=== PATIENT | male | born 1985 | race African-American/Black ===

== ENCOUNTER 2017-01-11 12:27 | Observation (INO) | payer SELFPAY ==
[~2017-01-11 12:27] MED LIST: METHI10 PO; PROP1TAB66 PO
[2017-01-11 12:29] VITALS: BP 131/93; PULSE 101; RESP 15; TEMP 98; O2SAT 97
[2017-01-11] MEDS ORDERED: SODIUM CHLORIDE 0.9% FLUSH 5 ML FLUSH IVF PRN (12:45)
[2017-01-11 12:56] VITALS: RESP 16; O2SAT 100
--- NOTE | 2017-01-11 12:57 | PD ---
HPI Chief Complaint: Pain: Acute or Chronic Time Seen by Provider: 12:52 Travel History International Travel<30 days: No Contact w/Intl Traveler<30days: No Traveled to known affect area: No History of Present Illness HPI Patient is a 31-year-old male presented to the emergency for evaluation of low back pain, bilateral pedal edema, rib pain. Patient states his ongoing for 1 week. He states that he gets diaphoretic and dizzy at times. He denies any nausea, vomiting, diarrhea, chest pain. He does report weight loss, despite a healthy appetite and eating constantly. Patient leaves he is in a thyroid storm , he was on methimazole as well as propanolol but has been out of these medications since September. Patient stated he has no primary doctor which to follow with. PFSH Past Medical History Asthma: No Blood Disorders: No Anxiety: Yes Depression: No Heart Rhythm Problems: Yes (tachycardia) High Cholesterol: No Chemotherapy: No Chest Pain: No Congestive Heart Failure: No COPD: No Diabetes: No Diminished Hearing: No Endocrine: Yes (hypothyroidism) Genitourinary: No Headaches: Yes Immune Disorder: No Musculoskeletal: No Neurologic: No Psychiatric: No Reproductive: No Respiratory: No Immunizations Current: No Migraines: Yes Radiation Therapy: No Sleep Apnea: No Thyroid Disease: Yes (GRAVES DISEASE) Tetanus Vaccination: Unknown Influenza Vaccination: Yes Past Surgical History Surgical History: No Previous Surgery Other Surgery: No Social History Alcohol Use: No Tobacco Use: Yes (1 PACK A DAY) Substance Use: Yes (marijuana) Allergies-Medications (Allergen,Severity, Reaction): Coded Allergies: No Known Allergies (Verified , 07/31/15) Reported Meds & Prescriptions Reported Meds & Active Scripts Active No Active Prescriptions or Reported Medications Review of Systems Except as stated in HPI: all other systems reviewed are Neg General / Constitutional: Positive: Weight Loss, No: Fever, Chills Eyes: No: Blurred Vision, Visual changes HENT: No: Headaches, Lightheadedness, Congestion, Neck Pain Cardiovascular: Positive: Tachycardia, Diaphoresis, No: Chest Pain or Discomfort Respiratory: Positive: Pleuritic Pain, No: Shortness of Breath Gastrointestinal: No: Nausea, Vomiting, Diarrhea, Abdominal Pain, Loss of Appetite Musculoskeletal: Positive: Myalgias, Edema (bilateral feet and ankles), Pain Neurologic: Positive: Dizziness, No: Syncope, Focal Abnormalities, Change in Mentation Physical Exam Narrative GENERAL: Thin, well-developed, alert male. Resting comfortably in no acute distress. SKIN: Warm and dry. HEAD: Atraumatic. Normocephalic. EYES: Pupils equal and round. No scleral icterus. No injection or drainage. Mild proptosis bilaterally ENT: No nasal bleeding or discharge. Mucous membranes pink and moist. NECK: Trachea midline. No JVD. CARDIOVASCULAR: Mildly tachycardic with rate in the low 100's. No murmur appreciated. RESPIRATORY: No accessory muscle use. Clear to auscultation. Breath sounds equal bilaterally. GASTROINTESTINAL: Abdomen soft, non-tender, nondistended. Hepatic and splenic margins not palpable. MUSCULOSKELETAL: No obvious deformities. No clubbing. No cyanosis. Trace edema noted to the left ankle, positive pedal pulses, brisk less than 3 second capillary refill. Negative Karli. NEUROLOGICAL: Awake and alert. No obvious cranial nerve deficits. Motor grossly within normal limits. Normal speech. PSYCHIATRIC: Appropriate mood and affect; insight and judgment normal. Data Data Last Documented VS Vital Signs Date Time Temp Pulse Resp B/P Pulse Ox O2 Delivery O2 Flow Rate FiO2 01/11/17 12:56 16 100 Room Air 01/11/17 12:29 98.0 101 131/93 Orders Electrocardiogram (01/11/17 12:38) B-Type Natriuretic Peptide (01/11/17 12:38) Ckmb (Isoenzyme) Profile (01/11/17 12:38) Complete Blood Count With Diff (01/11/17 12:38) Comprehensive Metabolic Panel (01/11/17 12:38) Magnesium (Mg) (01/11/17 12:38) Prothrombin Time / Inr (Pt) (01/11/17 12:38) Act Partial Throm Time (Ptt) (01/11/17 12:38) Troponin I (01/11/17 12:38) Chest, Single Ap (01/11/17 12:38) Ecg Monitoring (01/11/17 12:38) Bilateral Bp Monitoring (01/11/17 12:38) Iv Access Insert/Monitor (01/11/17 12:38) Oximetry (01/11/17 12:38) Sodium Chloride 0.9% Flush (Ns Flush) (01/11/17 12:45) Us Leg Venous Doppler Bilat (01/11/17 ) Thyroid Stimulating Hormone (01/11/17 12:49) Free Thyroxine (T4) (01/11/17 12:49) Granisetron Hcl (Kytril) (01/11/17 15:15) Admit Order (Ed Use Only) (01/11/17 15:23) Labs Laboratory Tests Test 01/11/17 12:55 White Blood Count 3.6 TH/MM3 Red Blood Count 4.45 MIL/MM3 Hemoglobin 12.0 GM/DL Hematocrit 35.0 % Mean Corpuscular Volume 78.6 FL Mean Corpuscular Hemoglobin 26.9 PG Mean Corpuscular Hemoglobin 34.3 % Concent Red Cell Distribution Width 13.0 % Platelet Count 181 TH/MM3 Mean Platelet Volume 8.5 FL Neutrophils (%) (Auto) 41.7 % Lymphocytes (%) (Auto) 38.9 % Monocytes (%) (Auto) 15.7 % Eosinophils (%) (Auto) 3.5 % Basophils (%) (Auto) 0.2 % Neutrophils # (Auto) 1.5 TH/MM3 Lymphocytes # (Auto) 1.4 TH/MM3 Monocytes # (Auto) 0.6 TH/MM3 Eosinophils # (Auto) 0.1 TH/MM3 Basophils # (Auto) 0.0 TH/MM3 CBC Comment DIFF FINAL Differential Comment Prothrombin Time 11.4 SEC Prothromb Time International 1.0 RATIO Ratio Activated Partial 29.1 SEC Thromboplast Time Sodium Level 140 MEQ/L Potassium Level 4.4 MEQ/L Chloride Level 108 MEQ/L Carbon Dioxide Level 26.2 MEQ/L Anion Gap 6 MEQ/L Blood Urea Nitrogen 11 MG/DL Creatinine 0.45 MG/DL Estimat Glomerular Filtration 265 ML/MIN Rate Random Glucose 94 MG/DL Calcium Level 8.6 MG/DL Magnesium Level 1.5 MG/DL Total Bilirubin 0.6 MG/DL Aspartate Amino Transf 10 U/L (AST/SGOT) Alanine Aminotransferase 21 U/L (ALT/SGPT) Alkaline Phosphatase 98 U/L Total Creatine Kinase 66 U/L Troponin I LESS THAN 0.02 NG/ML B-Type Natriuretic Peptide 127 PG/ML Total Protein 6.8 GM/DL Albumin 3.5 GM/DL Free Thyroxine 5.33 NG/DL Thyroid Stimulating Hormone LESS THAN 3rd Gen 0.005 uIU/ML MDM Medical Decision Making Medical Screen Exam Complete: Yes Emergency Medical Condition: Yes Medical Record Reviewed: Yes Interpretation(s) Last Impressions Chest X-Ray 01/11/17 1238 Signed Impressions: Service Date/Time: Wednesday, January 11, 2017 12:55 - CONCLUSION: No evidence of acute cardiopulmonary disease. Jb Reed MD Laboratory Tests Test 01/11/17 12:55 White Blood Count 3.6 TH/MM3 Red Blood Count 4.45 MIL/MM3 Hemoglobin 12.0 GM/DL Hematocrit 35.0 % Mean Corpuscular Volume 78.6 FL Mean Corpuscular Hemoglobin 26.9 PG Mean Corpuscular Hemoglobin 34.3 % Concent Red Cell Distribution Width 13.0 % Platelet Count 181 TH/MM3 Mean Platelet Volume 8.5 FL Neutrophils (%) (Auto) 41.7 % Lymphocytes (%) (Auto) 38.9 % Monocytes (%) (Auto) 15.7 % Eosinophils (%) (Auto) 3.5 % Basophils (%) (Auto) 0.2 % Neutrophils # (Auto) 1.5 TH/MM3 Lymphocytes # (Auto) 1.4 TH/MM3 Monocytes # (Auto) 0.6 TH/MM3 Eosinophils # (Auto) 0.1 TH/MM3 Basophils # (Auto) 0.0 TH/MM3 CBC Comment DIFF FINAL Differential Comment Prothrombin Time 11.4 SEC Prothromb Time International 1.0 RATIO Ratio Activated Partial 29.1 SEC Thromboplast Time Sodium Level 140 MEQ/L Potassium Level 4.4 MEQ/L Chloride Level 108 MEQ/L Carbon Dioxide Level 26.2 MEQ/L Anion Gap 6 MEQ/L Blood Urea Nitrogen 11 MG/DL Creatinine 0.45 MG/DL Estimat Glomerular Filtration 265 ML/MIN Rate Random Glucose 94 MG/DL Calcium Level 8.6 MG/DL Magnesium Level 1.5 MG/DL Total Bilirubin 0.6 MG/DL Aspartate Amino Transf 10 U/L (AST/SGOT) Alanine Aminotransferase 21 U/L (ALT/SGPT) Alkaline Phosphatase 98 U/L Total Creatine Kinase 66 U/L Troponin I LESS THAN 0.02 NG/ML B-Type Natriuretic Peptide 127 PG/ML Total Protein 6.8 GM/DL Albumin 3.5 GM/DL Free Thyroxine 5.33 NG/DL Thyroid Stimulating Hormone LESS THAN 3rd Gen 0.005 uIU/ML Vital Signs Date Time Temp Pulse Resp B/P Pulse Ox O2 Delivery O2 Flow Rate FiO2 01/11/17 12:29 98.0 101 15 131/93 97 Differential Diagnosis Thyroid storm versus electrolyte abnormality versus anemia versus DVT versus muscular skeletal pain versus other Narrative Course Patient is a 31-year-old male presenting to the emergency department evaluation of back and leg pain as well as swelling for the last week. Labs and imaging ordered pending. IV access initiated, patient placed on telemetry monitoring, continuous pulse oximetry. Patient is resting comfortably with family member at bedside. CBC reviewed, consistent with prior. Chemistry is unremarkable. TSH is 0.005, free T4 5.33. EKG shows sinus rhythm with possible left atrial enlargement, possible left ventricular hypertrophy. Reviewed previous EKG tracings, consistent with prior. Chest x-ray is negative Ultrasound of the lower extremity is negative for DVT. Patient to be admitted under observation for chest pain, hyperthyroidism. Hospitalist paged. Patient is agreeable to stay to have medications titrated and for observation on telemetry. Diagnosis Primary Impression: Chest pain Qualified Code: R07.9 - Chest pain, unspecified type Additional Impression: Hyperthyroidism Admitting Information Admitting Physician Requests: Observation Scripts No Active Prescriptions or Reported Meds Condition: Stable Rocío Whelan Jan 11, 2017 12:57
[2017-01-11 13:17] LABS: AUTOMATED NEUTROPHIL # 1.5 TH/MM3 (1.8-7.7); BASOPHIL % 0.2 % (0.0-2.0); EOSINOPHIL # 0.1 TH/MM3 (0-0.4); EOSINOPHIL % 3.5 % (0.0-4.0); HEMO FLAGS DIFF FINAL; LYMPH % 38.9 % (9.0-44.0); LYMPHOCYTE # 1.4 TH/MM3 (1.0-4.8); MEAN CELL VOLUME 78.6 FL (80.0-100.0); MEAN CORPUSCULAR HEMOGLOBIN 26.9 PG (27.0-34.0); MEAN CORPUSCULAR HGB CONC 34.3 % (32.0-36.0); MONO % 15.7 % (0.0-8.0); NEUT % 41.7 % (16.0-70.0); PLATELET COUNT 181 TH/MM3 (150-450); RED BLOOD COUNT 4.45 MIL/MM3 (4.50-5.90); WHITE BLOOD COUNT 3.6 TH/MM3 (4.0-11.0)
[2017-01-11 13:27] LABS: APTT (PATIENT) 29.1 SEC (24.3-30.1); PROTHROMBIN TIME - PATIENT 11.4 SEC (9.8-11.6)
[2017-01-11 13:33] LABS: ALT (GPT) 21 U/L (12-78); ANION GAP 6 MEQ/L (5-15); AST (GOT) 10 U/L (15-37); BICARBONATE 26.2 MEQ/L (21.0-32.0); BLOOD UREA NITROGEN 11 MG/DL (7-18); CHLORIDE 108 MEQ/L (98-107); GLOMERULAR FILTRATION RATE 265 ML/MIN (>89); MAGNESIUM 1.5 MG/DL (1.5-2.5); POTASSIUM 4.4 MEQ/L (3.5-5.1); SODIUM (NA) 140 MEQ/L (136-145)
--- NOTE | 2017-01-11 13:33 | RADRPT ---
EXAM DATE/TIME: 01/11/2017 12:55 [facility] COMPARISON: CHEST PA & LAT, July 14, 2015, 13:32. INDICATIONS : Chest Pain MEDICAL HISTORY : None. SURGICAL HISTORY : None. ENCOUNTER: Initial ACUITY: 1 day PAIN SCORE: 6/10 LOCATION: Bilateral chest FINDINGS: A single view of the chest demonstrates the lungs to be symmetrically aerated without evidence of mas s, infiltrate or effusion. The cardiomediastinal contours are unremarkable. Osseous structures are intact. CONCLUSION: No evidence of acute cardiopulmonary disease. Jb Reed MD on January 11, 2017 at 13:31 Board Certified Radiologist. This report was verified electronically.
[2017-01-11 13:37] LABS: ALKALINE PHOSPHATASE 98 U/L (45-117); TOTAL BILIRUBIN ADULT 0.6 MG/DL (0.2-1.0)
[2017-01-11 13:39] LABS: CREATINE KINASE 66 U/L (39-308)
[2017-01-11 14:03] LABS: FREE T4 5.33 NG/DL (0.76-1.46)
[2017-01-11] MEDS ORDERED: GRANISETRON HCL 1 MG TAB PO ONE (15:15)
--- NOTE | 2017-01-11 15:36 | RADRPT ---
EXAM DATE/TIME: 01/11/2017 13:55 [facility] COMPARISON: No previous studies available for comparison. INDICATIONS : Bilateral leg swelling. MEDICAL HISTORY : Hypothyroidism. Myocardial infarction. Graves disease. Anxiety. Tachycardia. Migraines. SURGICAL HISTORY : None. ENCOUNTER: Initial ACUITY: 1 day PAIN SCORE: 4/10 LOCATION: Bilateral legs. TECHNIQUE: Venous ultrasound of the left and right leg was performed from the inguinal ligament to the proximal calf. Real-time, color Doppler and spectral tracing, compression and augmentation techniques were us ed. FINDINGS: RIGHT LEG: There is normal compressibility of the deep venous system from the inguinal region to the proximal ca lf. No echogenic clot is seen in the lumen of the common femoral, femoral, popliteal, and posterior tibial veins. There is a normal response of the venous system to proximal and distal augmentation an d respiration. LEFT LEG: There is normal compressibility of the deep venous system from the inguinal region to the proximal ca lf. No echogenic clot is seen in the lumen of the common femoral, femoral, popliteal, and posterior tibial veins. There is a normal response of the venous system to proximal and distal augmentation an d respiration. CONCLUSION: Normal examination. Cooper Oleary MD on January 11, 2017 at 15:34 Board Certified Radiologist. This report was verified electronically.
[2017-01-11 16:00] VITALS: BP 124/84; PULSE 104; RESP 16; O2SAT 99
[2017-01-11] MEDS ORDERED: SODIUM CHLORIDE 0.9% FLUSH 5 ML FLUSH FLUSH PRN (16:45)
[2017-01-11] MEDS ORDERED: NALOXONE HCL 0.4 MG/ML AMP IV PRN (16:45)
[2017-01-11] MEDS ORDERED: ONDANSETRON HCL 4 MG/2 ML VIAL IVP PRN (16:45)
[2017-01-11] MEDS ORDERED: PROPRANOLOL HCL 20 MG TAB PO SCH (17:00)
--- NOTE | 2017-01-11 17:29 | PD ---
Physical Exam Narrative GENERAL: Well-nourished, well-developed patient. SKIN: Warm and dry. HEAD: Normocephalic and atraumatic. EYES: No injection or drainage. ENT: No nasal drainage noted. NECK: Supple, trachea midline. CARDIOVASCULAR: Tachycardic rate and regular rhythm in the 110 range RESPIRATORY: No increased effort. No accessory muscle use. EXTREMITIES: No edema. NEUROLOGICAL: Awake and alert. Motor and sensory grossly within normal limits. Normal speech. Data Data Last Documented VS Vital Signs Date Time Temp Pulse Resp B/P Pulse Ox O2 Delivery O2 Flow Rate FiO2 01/11/17 12:56 16 100 Room Air 01/11/17 12:29 98.0 101 131/93 Orders Electrocardiogram (01/11/17 12:38) B-Type Natriuretic Peptide (01/11/17 12:38) Ckmb (Isoenzyme) Profile (01/11/17 12:38) Complete Blood Count With Diff (01/11/17 12:38) Comprehensive Metabolic Panel (01/11/17 12:38) Magnesium (Mg) (01/11/17 12:38) Prothrombin Time / Inr (Pt) (01/11/17 12:38) Act Partial Throm Time (Ptt) (01/11/17 12:38) Troponin I (01/11/17 12:38) Chest, Single Ap (01/11/17 12:38) Ecg Monitoring (01/11/17 12:38) Bilateral Bp Monitoring (01/11/17 12:38) Iv Access Insert/Monitor (01/11/17 12:38) Oximetry (01/11/17 12:38) Sodium Chloride 0.9% Flush (Ns Flush) (01/11/17 12:45) Us Leg Venous Doppler Bilat (01/11/17 ) Thyroid Stimulating Hormone (01/11/17 12:49) Free Thyroxine (T4) (01/11/17 12:49) Granisetron Hcl (Kytril) (01/11/17 15:15) Admit Order (Ed Use Only) (01/11/17 15:23) Labs Laboratory Tests Test 01/11/17 12:55 White Blood Count 3.6 TH/MM3 Red Blood Count 4.45 MIL/MM3 Hemoglobin 12.0 GM/DL Hematocrit 35.0 % Mean Corpuscular Volume 78.6 FL Mean Corpuscular Hemoglobin 26.9 PG Mean Corpuscular Hemoglobin 34.3 % Concent Red Cell Distribution Width 13.0 % Platelet Count 181 TH/MM3 Mean Platelet Volume 8.5 FL Neutrophils (%) (Auto) 41.7 % Lymphocytes (%) (Auto) 38.9 % Monocytes (%) (Auto) 15.7 % Eosinophils (%) (Auto) 3.5 % Basophils (%) (Auto) 0.2 % Neutrophils # (Auto) 1.5 TH/MM3 Lymphocytes # (Auto) 1.4 TH/MM3 Monocytes # (Auto) 0.6 TH/MM3 Eosinophils # (Auto) 0.1 TH/MM3 Basophils # (Auto) 0.0 TH/MM3 CBC Comment DIFF FINAL Differential Comment Prothrombin Time 11.4 SEC Prothromb Time International 1.0 RATIO Ratio Activated Partial 29.1 SEC Thromboplast Time Sodium Level 140 MEQ/L Potassium Level 4.4 MEQ/L Chloride Level 108 MEQ/L Carbon Dioxide Level 26.2 MEQ/L Anion Gap 6 MEQ/L Blood Urea Nitrogen 11 MG/DL Creatinine 0.45 MG/DL Estimat Glomerular Filtration 265 ML/MIN Rate Random Glucose 94 MG/DL Calcium Level 8.6 MG/DL Magnesium Level 1.5 MG/DL Total Bilirubin 0.6 MG/DL Aspartate Amino Transf 10 U/L (AST/SGOT) Alanine Aminotransferase 21 U/L (ALT/SGPT) Alkaline Phosphatase 98 U/L Total Creatine Kinase 66 U/L Troponin I LESS THAN 0.02 NG/ML B-Type Natriuretic Peptide 127 PG/ML Total Protein 6.8 GM/DL Albumin 3.5 GM/DL Free Thyroxine 5.33 NG/DL Thyroid Stimulating Hormone LESS THAN 3rd Gen 0.005 uIU/ML [facility] Supervised Visit with GENEVA: Yes Interpretation(s) EKG is normal sinus rhythm at [address] segment elevation or T-wave inversion, large QRS voltage question LVH Last 24 hours Impressions Chest X-Ray 01/11/17 1238 Signed Impressions: Service Date/Time: Wednesday, January 11, 2017 12:55 - CONCLUSION: No evidence of acute cardiopulmonary disease. Jb Reed MD Lower Extremity Ultrasound 01/11/17 0000 Signed Impressions: Service Date/Time: Wednesday, January 11, 2017 13:55 - CONCLUSION: Normal examination. Cooper Oleary MD CBC & BMP Diagram 01/11/17 12:55 Differential Diagnosis Thyroid storm, noncompliance, musculoskeletal, gastritis, atypical cardiac Narrative Course Will check blood work, chest x-ray, Doppler ultrasound and reevaluate Patient without altered mental status or fever at this time but given noted of chest pain and palpitations with hyperthyroidism off of medications Will place in the hospital for monitoring while back on medications for cardiac monitoring , echocardiogram and serial EKGs and troponins. Patient agrees to this. Tachycardia is in the 110 range no indication for IV beta triny at this time Physician Communication Physician Communication Dr. calderon requests chest pain center observation dr barton thru his PA [place] states to admit to medicine dr calderon states to place in observation Diagnosis Primary Impression: Chest pain Additional Impressions: Lower extremity edema Hyperthyroidism Admitting Information Admitting Physician Requests: Observation Scripts No Active Prescriptions or Reported Meds Elizabeth Grace MD Jan 11, 2017 17:29
[2017-01-11 17:57] VITALS: BP 138/70; PULSE 102; RESP 18; TEMP 97.9; O2SAT 98
[2017-01-11] MEDS ORDERED: PILL SPLITTER OTHER PRN (18:30)
--- NOTE | 2017-01-11 18:54 | HHI.HP ---
[facility] No Primary Care Physician Admission Diagnosis chest pain, hyperthyroidism Diagnoses: Chief Complaint: chest pain, lower extremity edema Travel History International Travel<30 Days: No Contact w/Intl Traveler <30 Da: No Traveled to Known Affected Are: No History of Present Illness Patient is a 31-year-old old male with primary medical history of hyperthyroidism who came to the hospital for evaluation of chest/ rib pain, bilateral pedal edema, and low back pain. Patient says started about 4 days ago that he had been having bilateral rib pain increased with taking deep breaths occurring usually at night, described as sharp and intermittent, aggravated by movement and strength is activities. Reports occasional shortness of breath with activities, but gets relief with resting. Also reports bilateral foot pain, ankles and foot feels like with bubbles of water increased pain with activities and walking, swelling is left greater than the right foot, this problem is going on and off. 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 Patient also reports he was homeless and now getting back on his feet. Patient also revealed that he does not take his thyroid medication since last September and was unable to follow up with a PCP that was set up or for him after his discharge from last year. Patient is on a thyroid storm, he was previously prescribed methimazole and propranolol. On exam, patient states he's feeling a lot better, states bilateral rib pain is improved because his resting. Otherwise, denies SOB/ dyspnea. Denies palpitations, headaches, dizziness. Denies fevers, chills, n/v/d. Chest x-ray showed no evidence of acute cardiopulmonary disease. Bilateral lower extremity ultrasound showed normal examination. Labs reviewed noted leukocytopenia WBC 3.6, mild microcytic anemia H&H 12/35, RBC 4.45, MCV 78.6, MCH 26.9, monocytes slightly elevated 15.7. CMP chloride 108, creatinine low 0.45, low AST 10. First troponin less than 0.02. BNP 127. TSH less than 0.005, free T4 5 0.33. Review of Systems Except as stated in HPI: all other systems reviewed are Neg Past Family Social History Past Medical History Hyperthyroidism Graves' disease Past Surgical History No surgical history Reported Medications None. Previously prescribed methimazole, propranolol Allergies: Coded Allergies: No Known Allergies (Verified , 07/31/15) Active Ordered Medications Current Medications Medications (Trade) Dose Ordered Sig/Lorne Route Start Time Stop Time Status Last Admin (NS Flush) 2 ml UNSCH PRN FLUSH 01/11/17 16:45 (NS Flush) 2 ml BID FLUSH 01/11/17 21:00 (Tylenol) 650 mg Q4H PRN PO 01/11/17 16:45 (Zofran Inj) 4 mg Q6H PRN IVP 01/11/17 16:45 (Narcan Inj) 0.4 mg UNSCH PRN IV 01/11/17 16:45 (Tapazole) 10 mg Q8HR PO 01/11/17 22:00 (Inderal) 20 mg Q8H PO 01/11/17 17:00 Family History Both sides of the family have thyroid disease. Grandfather has diabetes Grandmother and grandfather of heart attacks Social History Denies alcohol use Current day smoker 1 pack per day Marijuana use Physical Exam Vital Signs Vital Signs Date Time Temp Pulse Resp B/P Pulse Ox O2 Delivery O2 Flow Rate FiO2 01/11/17 17:57 97.9 102 18 138/70 98 01/11/17 16:00 104 16 124/84 99 Room Air 01/11/17 12:56 16 100 Room Air 01/11/17 12:29 98.0 101 15 131/93 97 Physical Exam GENERAL: This is a thinly appearing, well-developed patient, in no apparent distress. SKIN: Warm and dry. Vitiligo. HEAD: Atraumatic. Normocephalic. No temporal or scalp tenderness. EYES: Pupils equal round and reactive. Extraocular motions intact. No scleral icterus. No injection or drainage. Exophthalmus. ENT: Nose without bleeding. Throat without erythema. Uvula midline. Airway patent. NECK: Trachea midline. No JVD or lymphadenopathy. Supple, nontender, no meningeal signs. Pulsating carotid pulse. CARDIOVASCULAR: Tachycardia without murmurs, gallops, or rubs. RESPIRATORY: Clear to auscultation. Breath sounds equal bilaterally. No wheezes , rales, or rhonchi. GASTROINTESTINAL: Abdomen soft, non-tender, nondistended. No hepato-splenomegaly , or palpable masses. No guarding. MUSCULOSKELETAL: Extremities without clubbing, cyanosis. Left ankle and pedal edema +1, right ankle pedal edema trace. No calf tenderness. Negative Homans sign bilaterally. NEUROLOGICAL: Awake and alert. Oriented 3. Motor and sensory grossly within normal limits. No focal neuro deficit. Normal speech. Laboratory Laboratory Tests Test 01/11/17 12:55 White Blood Count 3.6 Red Blood Count 4.45 Hemoglobin 12.0 Hematocrit 35.0 Mean Corpuscular Volume 78.6 Mean Corpuscular Hemoglobin 26.9 Mean Corpuscular Hemoglobin 34.3 Concent Red Cell Distribution Width 13.0 Platelet Count 181 Mean Platelet Volume 8.5 Neutrophils (%) (Auto) 41.7 Lymphocytes (%) (Auto) 38.9 Monocytes (%) (Auto) 15.7 Eosinophils (%) (Auto) 3.5 Basophils (%) (Auto) 0.2 Neutrophils # (Auto) 1.5 Lymphocytes # (Auto) 1.4 Monocytes # (Auto) 0.6 Eosinophils # (Auto) 0.1 Basophils # (Auto) 0.0 CBC Comment DIFF FINAL Differential Comment Prothrombin Time 11.4 Prothromb Time International 1.0 Ratio Activated Partial 29.1 Thromboplast Time Sodium Level 140 Potassium Level 4.4 Chloride Level 108 Carbon Dioxide Level 26.2 Anion Gap 6 Blood Urea Nitrogen 11 Creatinine 0.45 Estimat Glomerular Filtration 265 Rate Random Glucose 94 Calcium Level 8.6 Magnesium Level 1.5 Total Bilirubin 0.6 Aspartate Amino Transf 10 (AST/SGOT) Alanine Aminotransferase 21 (ALT/SGPT) Alkaline Phosphatase 98 Total Creatine Kinase 66 Troponin I LESS THAN 0.02 B-Type Natriuretic Peptide 127 Total Protein 6.8 Albumin 3.5 Free Thyroxine 5.33 Thyroid Stimulating Hormone LESS THAN 3rd Gen 0.005 Result Diagram: 01/11/17 1255 01/11/17 1255 Imaging Last Impressions Chest X-Ray 01/11/17 1238 Signed Impressions: Service Date/Time: Wednesday, January 11, 2017 12:55 - CONCLUSION: No evidence of acute cardiopulmonary disease. Jb Reed MD Lower Extremity Ultrasound 01/11/17 0000 Signed Impressions: Service Date/Time: Wednesday, January 11, 2017 13:55 - CONCLUSION: Normal examination. Cooper Oleary MD Assessment and Plan Problem List: (1) Hyperthyroidism ICD Code: E05.90 Status: Acute (2) Lower extremity edema ICD Code: R60.0 Status: Acute (3) Tobacco dependence ICD Code: F17.200 Status: Chronic (4) Thyroid storm ICD Code: E05.91 Status: Acute (5) Vitiligo ICD Code: L80 Status: Acute (6) Anemia ICD Code: D64.9 Status: Acute Assessment and Plan Patient is a 31-year-old old male with primary medical history of hyperthyroidism who came to the hospital for evaluation of chest/ rib pain, bilateral pedal edema, and low back pain. Patient noncompliant with hyperthyroidism medications methimazole and propranolol, wasn't able to follow up with PCP that was set up for him after his discharge from last year's admission. Hyperthyroidism, Graves' disease - TSH less than 0.005, free T4 5 0.35 - restart medication methimazole 10 mg every 8 hours., Propranolol 30 mg every 6 hours - Discuss with patient importance of medication compliance and following up with PCP to monitor hyperthyroidism. Discussed risks of untreated hyperthyroidism. - Monitor vital signs. Atypical chest pain, rib pain - first troponin negative, follow-up next point in result - CK 66, EKG reviewed sinus rhythm rate [address] elevation changes. ? Left Ventricular hypertrophy - Possible rib pain secondary to increased activity. Patient just started carwash job, patient is sedentary prior. Leukopenia, microcytic anemia - WBC 3.6, H&H 12.0/35 - Will check iron studies Bilateral pedal edema - BNP 127 - Lower extremity ultrasound within normal - Elevate legs. Vitiligo probably related to hyperthyroidism Graves' disease. DVT prop SCDs Written by Stephon Bianchi, acting as scribe for Dr. Bernal on 01/11/17 at 18: 23. The documentation accurately reflects the work performed [id number] by me on 01/11/17 at 18:23. Code Status Full code Discussed Condition With Patient, nursing, and ED attending. Problem Qualifiers (1) Anemia: Qualified Code: D64.9 - Anemia, unspecified type Stephon Montero Jan 11, 2017 18:54 Kamila Bernal MD Jan 11, 2017 18:59
[2017-01-11 20:27] VITALS: BP 119/57; PULSE 91; RESP 19; TEMP 98.2; O2SAT 99
[2017-01-11 20:34] VITALS: PULSE 84
[2017-01-11] MEDS: SODIUM CHLORIDE 0.9% FLUSH 5 ML FLUSH FLUSH SCH (21:19)
[2017-01-11] MEDS: METHIMAZOLE 10 MG TAB PO SCH (21:19)
[2017-01-11] MEDS: ACETAMINOPHEN 325 MG TAB PO PRN (21:24)
[2017-01-12 00:48] VITALS: BP 120/60; PULSE 92; RESP 19; TEMP 98.2; O2SAT 99
[2017-01-12] MEDS: PROPRANOLOL HCL 20 MG TAB PO SCH ×2 (01:11→06:05)
[2017-01-12 03:47] VITALS: BP 99/46; PULSE 72; RESP 19; TEMP 98; O2SAT 97
[2017-01-12] MEDS: METHIMAZOLE 10 MG TAB PO SCH ×2 (06:04→11:33)
[2017-01-12] MEDS: SODIUM CHLORIDE 0.9% FLUSH 5 ML FLUSH FLUSH SCH (08:23)
[2017-01-12] MEDS ORDERED: ATEN50TA PO (08:30)
[2017-01-12] MEDS ORDERED: METHI10 PO (08:30)
--- NOTE | 2017-01-12 08:57 | HHI.DCPOC ---
Discharge Care Plan Diagnosis: (1) Hyperthyroidism (2) Musculoskeletal chest pain (3) Tobacco dependence Goals to Promote Your Health * To prevent worsening of your condition and complications * To maintain your health at the optimal level Directions to Meet Your Goals Take your medications as prescribed Follow your dietary instruction Follow activity as directed Keep your appointments as scheduled Take your immunizations and boosters as scheduled If your symptoms worsen call your PCP, if no PCP go to Urgent Care Center or Emergency Room Smoking is Dangerous to Your Health. Avoid second hand smoke Call the 24-hour hour crisis hotline for domestic abuse at Kamila Bernal MD Jan 12, 2017 08:57
--- NOTE | 2017-01-12 08:58 | HHI.PR ---
Subjective Remarks Patient reports that he is feeling better. Denies chest pressure or pain. Heart rate better controlled. He denies palpitations. Objective Vitals Vital Signs Date Time Temp Pulse Resp B/P Pulse Ox O2 Delivery O2 Flow Rate FiO2 01/12/17 03:47 98.0 72 19 99/46 97 01/12/17 00:48 98.2 92 19 120/60 99 01/11/17 20:34 84 01/11/17 20:27 98.2 91 19 119/57 99 01/11/17 17:57 97.9 102 18 138/70 98 01/11/17 16:00 104 16 124/84 99 Room Air 01/11/17 12:56 16 100 Room Air 01/11/17 12:29 98.0 101 15 131/93 97 I/O 01/11/17 01/11/17 01/11/17 01/12/17 01/12/17 01/12/17 07:00 15:00 23:00 07:00 15:00 23:00 Output Total 500 ml Balance -500 ml Output Urine Total 500 ml # Voids 1 Result Diagram: 01/11/17 1255 01/11/17 1255 Imaging Last Impressions Chest X-Ray 01/11/17 1238 Signed Impressions: Service Date/Time: Wednesday, January 11, 2017 12:55 - CONCLUSION: No evidence of acute cardiopulmonary disease. Jb Reed MD Lower Extremity Ultrasound 01/11/17 0000 Signed Impressions: Service Date/Time: Wednesday, January 11, 2017 13:55 - CONCLUSION: Normal examination. Cooper Oleary MD Objective Remarks GENERAL: This is a thinly appearing, well-developed patient, in no apparent distress. SKIN: Warm and dry. Vitiligo. NECK: Trachea midline. No JVD or lymphadenopathy. Supple, nontender, no meningeal signs. Pulsating carotid pulse. CARDIOVASCULAR: Normal rate without murmurs, gallops, or rubs. RESPIRATORY: Clear to auscultation. Breath sounds equal bilaterally. No wheezes , rales, or rhonchi. GASTROINTESTINAL: Abdomen soft, non-tender, nondistended. No hepato-splenomegaly , or palpable masses. No guarding. MUSCULOSKELETAL: Extremities without clubbing, cyanosis. Left ankle and pedal edema +1, right ankle pedal edema trace. No calf tenderness. NEUROLOGICAL: Awake and alert. Normal speech. A/P Problem List: (1) Hyperthyroidism ICD Code: E05.90 Status: Acute (2) Lower extremity edema ICD Code: R60.0 Status: Acute (3) Tobacco dependence ICD Code: F17.200 Status: Chronic (4) Thyroid storm ICD Code: E05.91 Status: Acute (5) Vitiligo ICD Code: L80 Status: Acute (6) Anemia ICD Code: D64.9 Status: Acute Assessment and Plan Patient is a 31-year-old old male with primary medical history of hyperthyroidism who came to the hospital for evaluation of chest/ rib pain, bilateral pedal edema, and low back pain. Patient noncompliant with hyperthyroidism medications methimazole and propranolol, wasn't able to follow up with PCP that was set up for him after his discharge from last year's admission. Evaluation and treatment course as followed: Hyperthyroidism, Graves' disease - TSH less than 0.005, free T4 5 0.35 - restart medication methimazole 10 mg every 8 hours. Change beta triny to atenolol 50 mg twice a day to help with compliance. - Discuss with patient importance of medication compliance and following up with PCP to monitor hyperthyroidism. Discussed risks of untreated hyperthyroidism. -I asked case management to set up follow-up appointment with the community clinic. He will need to be monitored for titration of the thyroid medications. Atypical chest pain, rib pain -likely secondary to musculoskeletal strain. Patient has been sedentary. 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 He is tender to palpation on exam. Serial EKG and troponins were unremarkable. He is advised to use [id number] Tylenol as needed. Patient is discharged home in good condition Follow-up with community clinic Diet: Regular as tolerated Activity: Regular as tolerated Medications per med rec. Problem Qualifiers (1) Anemia: Qualified Code: D64.9 - Anemia, unspecified type Kamila Bernal MD Jan 12, 2017 08:58
[2017-01-12] MEDS: ACETAMINOPHEN 325 MG TAB PO PRN (09:23)
--- NOTE | 2017-01-12 15:09 | EKG ---
Date Performed: 01/11/2017 Time Performed: 12:45:28 PTAGE: 31 years EKG: Sinus rhythm POSSIBLE LEFT ATRIAL ENLARGEMENT POSSIBLE LEFT VENTRICULAR HYPERTROPHY Since previous tracing, no si gnificant change noted ABNORMAL ECG PREVIOUS TRACING : 07/22/2016 13.27 DOCTOR: Geovanny Guy Interpretating Date/Time 01/12/2017 15:08:44
[2017-01-12] MEDS ORDERED: ATENOLOL 50 MG TAB PO SCH (21:00)
== END 2017-01-12 13:20 | disposition home or self-care (01) ==
LOC: NEPA 12:27 → NEDA 15:25 → NEPFCDU 17:42
PROVIDERS: ADMIT Family Medicine; ATTEND Family Medicine
DX: R07.89 Other chest pain (principal); E03.9 Hypothyroidism, unspecified; E05.91 Thyrotoxicosis, unspecified with thyrotoxic crisis or storm; D50.9 Iron deficiency anemia, unspecified; R60.0 Localized edema; D72.819 Decreased white blood cell count, unspecified; I51.7 Cardiomegaly; L80 Vitiligo; F12.90 Cannabis use, unspecified, uncomplicated; F17.210 Nicotine dependence, cigarettes, uncomplicated; Z91.19 Patient's noncompliance with other medical treatment and regimen; Z59.0 Homelessness
CPT/HCPCS: 71010; 80053; 82550; 83735; 83880; 84439; 84443; 84484; 85025; 85610; 85730; 93005; 93970; 99285; G0378